=== PATIENT | male | born 1955 | race Caucasian/White ===

== ENCOUNTER 2016-12-09 22:30 | Emergency (ER) | payer OTHER ==
[~2016-12-09 22:30] MED LIST: ALBUTEROL SULF8.5 GM IH; AMOXICILLIN500 MG PO; ATARAX,VISTARIL25 MG PO; ATARAX10 MG PO; AUGMENTIN500 MG PO; B COMPLEX #11 EACH PO; BACTROBAN OINTM22 GM TP; BESIVANCE5 ML LEFT EYE; CLEOCIN300 MG PO; CLINDAMYCIN HC300 MG PO; CLONIDINE HCL0.1 MG PO; COMBIGAN O20 DROP/5 BOTH EYES; COMBIVENT RESPIM4 GM IH; COMBIVENT200 INHALA IH; COUMADIN PO; COUMADIN,JANTOVE5 MG PO; COUMADIN5 MG PO; Colace PO; Coumadin dosing per PO; Coumadin,Jantoven PO; DILAUDID2 MG PO; DUREZOL 0.100 DROP/5 LEFT EYE; ENOXAPARIN SC; GABAPENTIN300 MG PO; HYDROCHLOROTH12.5 M3 PO; ILEVRO1.7 ML LEFT EYE; K-DUR20 MEQ PO; KADIAN30 MG PO; KEFLEX500 MG PO; KENALOG,ARISTOC15 G2 TP; KENALOG,ARISTOC80 G1 TP; KLONOPIN0.5 M1 PO; LAMISIL250 MG PO; LASIX20 MG PO; LASIX40 MG PO; LATANOPROST2.5 ML BOTH EYES; LIBRIUM25 MG PO; LIDOCAINE700 MG TD; LISINOPRIL10 MG PO; Lasix PO; MELOXICAM15 MG PO; MICROZIDE12.5 M1 PO; MORPHINE CON20 MG/M1 PO; MORPHINE PO; MORPHINE SULFAT15 M1 PO; NAPROSYN500 MG PO; NEURONTIN300 MG PO; NICOTINE PATCH1 EAC2 TD; NOHOMEMEDS; Neurontin PO; Normodyne,Trandate PO; PERCOCET 10/1 TABLET PO; PERCOCET 5/31 TABLET; PERCOCET 5/31 TABLET PO; PREDNISONE10 MG PO; PREDNISONE20 MG PO; PREDNISONE50 MG PO; PRILOSEC40 MG PO; PROMETHAZINE HC25 M1 PO; PROTONIX PO; PROZAC10 MG PO; Percocet 5/325,Endoc PO; Protonix PO; RANITIDINE HCL150 M1 PO; SENOKOT,SENN1 TABLE1 PO; SYMBICORT60 INHALAT IH; THERAGRAN1 TABLET PO; THIAMINE,VITAM100 MG PO; TRAZODONE HCL50 MG PO; Tylenol Regular Stre PO; ULTRACET1 TABLET PO; ULTRAVATE 0.05%15 GM TP; VENTOLIN HFA18 GM IH; VOLTAREN75 MG PO; WARFARIN SODIUM5 MG PO; XARELTO15 MG PO; XARELTO20 MG PO; ZANTAC150 MG PO; ZITHROMAX Z-PA250 MG PO; ZOFRAN ODT8 MG PO; [UNRECOGNIZED DRUG - REMARK]
== END 2016-12-09 22:48 | disposition left against medical advice (07) ==
LOC: EME 22:30
DX: R07.81 Pleurodynia (principal); M54.9 Dorsalgia, unspecified; Z53.21 Procedure and treatment not carried out due to patient leaving prior to being seen by health care provider

== ENCOUNTER 2016-12-14 12:05 | Emergency (ER) | payer OTHER ==
[~2016-12-14] VITALS: Ht 172.7 cm; Wt 75.0 kg
[2016-12-14] MEDS ORDERED: OMEPRAZOLE20 M2 PO (14:08)
[2016-12-14] MEDS ORDERED: ZESTRIL10 MG PO (14:10)
[2016-12-14 15:20] LABS: HEMATOCRIT 27.8 % (38.0-50.0); MCH 19.9 PG (29.0-34.0); MCHC 31.3 G/DL (30.0-36.0); MCV 63.5 FL (86-99); PLATELET COUNT 449 K/uL (156-360); RBC DIS.WIDTH-CV 19.7 % (11.8-14.6); RED BLOOD COUNT 4.38 M/uL (4.00-5.50); WHITE BLOOD COUNT 5.8 K/uL (4.1-10.2)
[2016-12-14 15:38] LABS: CHLORIDE 106 mEq/L (99-109); POTASSIUM 4.4 mEq/L (3.7-5.4); SODIUM 138 mEq/L (136-147)
[2016-12-14 15:40] LABS: GLUCOSE 99 mg/dL (70-99)
[2016-12-14 15:41] LABS: ANION GAP 10 MEQ/L (2-14)
[2016-12-14 15:44] LABS: GFR ESTIMATE (CALCULATED) > 59 mL/min/
[2016-12-14 15:45] LABS: UREA NITROGEN (BUN) 7 mg/dL (9-23)
[2016-12-14 16:41] LABS: ADD MIUA? NO; BILIRUBIN NEGATIVE; BLOOD NEGATIVE; COLOR YELLOW ((YELLOW)); GLUCOSE (STRIP) NEGATIVE; KETONES NEGATIVE; LEUKOCYTES NEGATIVE; NITRITE NEGATIVE; PROTEIN (STRIP) NEGATIVE; SPECIFIC GRAVITY 1.022 (1.000-1.030); UCUL ADDED? NO; UROBILINOGEN 0.2 MG/DL (0.2-1.0)
[2016-12-14] MEDS ORDERED: KEFLEX500 MG PO (16:54)
[2016-12-14] MEDS ORDERED: ULTRAM50 MG PO (17:33)
[2016-12-14 18:02] VITALS: BP 132/88
== END 2016-12-14 18:03 | disposition home or self-care (01) ==
LOC: EME 12:05
PROVIDERS: Physician Assistant
DX: S20.211A Contusion of right front wall of thorax, initial encounter (principal); L03.115 Cellulitis of right lower limb; D64.9 Anemia, unspecified; Y04.0XXA Assault by unarmed brawl or fight, initial encounter; Y92.89 Other specified places as the place of occurrence of the external cause; I10 Essential (primary) hypertension; K21.9 Gastro-esophageal reflux disease without esophagitis; Z86.711 Personal history of pulmonary embolism; Z86.718 Personal history of other venous thrombosis and embolism; F17.200 Nicotine dependence, unspecified, uncomplicated; Z89.511 Acquired absence of right leg below knee
CPT/HCPCS: 71020; 80048; 81003; 85027; 99281; 99284

== ENCOUNTER 2017-02-13 14:03 | Emergency (ER) | payer OTHER ==
[~2017-02-13] VITALS: Ht 172.7 cm; Wt 85.4 kg
[~2017-02-13 14:03] MED LIST changes: +OMEPRAZOLE20 M2 PO; +ULTRAM50 MG PO; +ZESTRIL10 MG PO
[2017-02-13] MEDS ORDERED: LIDODERM 5% P1 PATCH TD (17:39)
[2017-02-13 18:51] VITALS: BP 127/74
== END 2017-02-13 18:53 | disposition home or self-care (01) ==
LOC: EME 14:03
DX: M77.32 Calcaneal spur, left foot (principal); S80.811A Abrasion, right lower leg, initial encounter; Z89.511 Acquired absence of right leg below knee; X58.XXXA Exposure to other specified factors, initial encounter; I10 Essential (primary) hypertension; K21.9 Gastro-esophageal reflux disease without esophagitis; Z86.711 Personal history of pulmonary embolism; Z86.718 Personal history of other venous thrombosis and embolism; F17.200 Nicotine dependence, unspecified, uncomplicated
CPT/HCPCS: 73630; 99281; 99284

== ENCOUNTER 2017-02-27 16:21 | Inpatient (IN) | payer OTHER ==
[~2017-02-27] VITALS: Ht 162.6 cm; Wt 80.9 kg
[~2017-02-27 16:21] MED LIST changes: +LIDODERM 5% P1 PATCH TD
[2017-02-27 17:34] LABS: CHLORIDE 104 mEq/L (99-109); POTASSIUM 3.8 mEq/L (3.7-5.4); SODIUM 137 mEq/L (136-147)
[2017-02-27 17:35] LABS: GLUCOSE 86 mg/dL (70-99)
[2017-02-27 17:36] LABS: HEMATOCRIT 23.8 % (38.0-50.0); MCHC 30.3 G/DL (30.0-36.0); MCV 62.8 FL (86-99); MEAN PLAT.VOLUME 8.1 uM^3 (9.0-12.4); PLATELET COUNT 651 K/uL (156-360); RBC DIS.WIDTH-CV 19.9 % (11.8-14.6); RBC DIS.WIDTH-SD 43.3 % (39-53); RED BLOOD COUNT 3.79 M/uL (4.00-5.50); WHITE BLOOD COUNT 9.2 K/uL (4.1-10.2)
[2017-02-27 17:37] LABS: ANION GAP 11 MEQ/L (2-14)
[2017-02-27 17:39] LABS: GFR ESTIMATE (CALCULATED) > 59 mL/min/
[2017-02-27 17:40] LABS: UREA NITROGEN (BUN) 7 mg/dL (9-23)
[2017-02-27] MEDS ORDERED: XARELTO20 MG PO (21:06)
[2017-02-27] MEDS ORDERED: LATANOPROST2.5 ML BOTH EYES (21:07)
[2017-02-27] MEDS ORDERED: TIZANIDINE HCL4 MG PO (21:08)
[2017-02-27] MEDS ORDERED: GABAPENTIN300 MG PO (21:09)
[2017-02-27] MEDS ORDERED: MEDROL DOSEPAK4 MG PO (21:11)
[2017-02-27] MEDS ORDERED: TRAZODONE HCL50 MG PO (21:11)
[2017-02-27] MEDS ORDERED: CLONAZEPAM0.5 MG PO (21:12)
[2017-02-27] MEDS ORDERED: FLUOXETINE HCL40 MG PO (21:12)
[2017-02-27 21:54] VITALS: BP 129/64
[2017-02-27 22:10] VITALS: BP 131/66
[2017-02-27 22:55] VITALS: BP 139/68
[2017-02-27 23:55] VITALS: BP 141/73
[2017-02-28] VITALS (11 sets, daily range): BP systolic 125–171; BP diastolic 70–84
[2017-02-28 02:37] LABS: IRON 18 MCG/DL (35-150)
[2017-02-28 07:42] LABS: HEMATOCRIT 30.2 % (38.0-50.0); MCH 20.5 PG (29.0-34.0); MCHC 30.1 G/DL (30.0-36.0); MEAN PLAT.VOLUME 8.4 uM^3 (9.0-12.4); PLATELET COUNT 624 K/uL (156-360); RBC DIS.WIDTH-CV 24.2 % (11.8-14.6); RBC DIS.WIDTH-SD 56.6 % (39-53); RED BLOOD COUNT 4.44 M/uL (4.00-5.50); WHITE BLOOD COUNT 8.2 K/uL (4.1-10.2)
[2017-02-28 07:43] LABS: ANION GAP 7 MEQ/L (2-14); CHLORIDE 106 MEQ/L (99-109); GFR ESTIMATE (CALCULATED) > 59 mL/min/; GLUCOSE 83 mg/dL (70-99); POTASSIUM 4.3 MEQ/L (3.7-5.4); SAMPLE HEMOLYSIS CHECK 0; SAMPLE ICTERIC CHECK 0; SAMPLE LIPEMIA CHECK 0; SODIUM 139 MEQ/L (136-147); UREA NITROGEN (BUN) 9 mg/dL (9-23)
[2017-02-28 07:56] LABS: FERRITIN 7 NG/ML (22-322)
[2017-02-28 16:18] LABS: INTERNAL CONTROL VALID? YES
[2017-03-01 00:09] VITALS: BP 147/77
[2017-03-01 03:22] VITALS: BP 150/85
[2017-03-01 06:52] LABS: HEMATOCRIT 29.1 % (38.0-50.0); MCH 20.9 PG (29.0-34.0); MCHC 30.6 G/DL (30.0-36.0); MCV 68.3 FL (86-99); MEAN PLAT.VOLUME 8.5 uM^3 (9.0-12.4); PLATELET COUNT 555 K/uL (156-360); RBC DIS.WIDTH-CV 24.3 % (11.8-14.6); RBC DIS.WIDTH-SD 56.9 % (39-53); RED BLOOD COUNT 4.26 M/uL (4.00-5.50); WHITE BLOOD COUNT 6.9 K/uL (4.1-10.2)
[2017-03-01 07:04] LABS: ANION GAP 6 MEQ/L (2-14); CHLORIDE 103 MEQ/L (99-109); GFR ESTIMATE (CALCULATED) > 59 mL/min/; GLUCOSE 82 mg/dL (70-99); POTASSIUM 4.2 MEQ/L (3.7-5.4); SAMPLE HEMOLYSIS CHECK 0; SAMPLE ICTERIC CHECK 0; SAMPLE LIPEMIA CHECK 0; SODIUM 137 MEQ/L (136-147); UREA NITROGEN (BUN) 12 mg/dL (9-23)
[2017-03-01 08:19] VITALS: BP 129/71
[2017-03-01 11:04] VITALS: BP 131/66
[2017-03-01 16:01] VITALS: BP 134/77
[2017-03-01 20:23] VITALS: BP 122/70
[2017-03-02 00:03] VITALS: BP 114/69
[2017-03-02 04:00] VITALS: BP 127/70
[2017-03-02 07:38] VITALS: BP 116/62
[2017-03-02 11:09] VITALS: BP 104/54
[2017-03-02] MEDS ORDERED: ENDOCET 5-3251 EACH PO (13:30)
[2017-03-02] MEDS ORDERED: ZESTRIL10 MG PO (13:30)
== END 2017-03-02 15:20 | disposition home or self-care (01) | DRG 812 ==
LOC: EME 16:21 → 5SOUTH 23:24 → EDOF 23:24 → 5SOUTH 02-28 02:04
PROVIDERS: Family Medicine
PROC: 30233N1 Transfusion of Nonautologous Red Blood Cells into Peripheral Vein, Percutaneous Approach (ICD-10-PCS; principal; 2017-02-27)
DX: D50.9 Iron deficiency anemia, unspecified (principal); T87.89 Other complications of amputation stump; Y83.5 Amputation of limb(s) as the cause of abnormal reaction of the patient, or of later complication, without mention of misadventure at the time of the procedure; I73.9 Peripheral vascular disease, unspecified; I10 Essential (primary) hypertension; J44.9 Chronic obstructive pulmonary disease, unspecified; K21.9 Gastro-esophageal reflux disease without esophagitis; F41.9 Anxiety disorder, unspecified; I87.2 Venous insufficiency (chronic) (peripheral); I89.0 Lymphedema, not elsewhere classified; F10.20 Alcohol dependence, uncomplicated; G89.29 Other chronic pain; F17.210 Nicotine dependence, cigarettes, uncomplicated; Z86.711 Personal history of pulmonary embolism; Z88.1 Allergy status to other antibiotic agents; Z88.5 Allergy status to narcotic agent; Z86.718 Personal history of other venous thrombosis and embolism; Z89.511 Acquired absence of right leg below knee; Z79.01 Long term (current) use of anticoagulants; Z79.82 Long term (current) use of aspirin
CPT/HCPCS: 71020; 80048; 82272; 82728; 83540; 84466; 85027; 86850; 86900; 86901; 86920; 93926; 93971; 94640; 99281; 99285; J1756; J2405; J7050; J7509; P9016

== ENCOUNTER 2017-06-11 15:29 | Inpatient (IN) | payer OTHER ==
[~2017-06-11 15:29] MED LIST changes: +CLONAZEPAM0.5 MG PO; +ENDOCET 5-3251 EACH PO; +FLUOXETINE HCL40 MG PO; +MEDROL DOSEPAK4 MG PO; +TIZANIDINE HCL4 MG PO
[2017-06-11 16:02] LABS: BASE EXCESS -1.6 mEq/L (-3 to +3); CARBOXY HGB 3.2 % (0-5)
[2017-06-11 16:06] LABS: BICARBONATE 21.7 mEq/L (22-26); COMMENTS - BLOOD GASES A+C+; PCO2 32 mm Hg (35-45); PO2 63 mm Hg (80-100); SITE LR; pH 7.44 (7.35-7.45)
[2017-06-11 16:07] LABS: FI02 0.21 %
[2017-06-11 16:24] LABS: BASOPHIL COUNT 0.1 K/uL (0-0.1); EOSINOPHIL (%) 1.4 % (0-5); HEMATOCRIT 43.5 % (38.0-50.0); IMMATURE GRANULOCYTE (%) 0.7 % (0.0-0.7); INSTRUMENT ABS NEUTROPHIL CT 0.9 K/uL; LYMPHOCYTE COUNT 1.4 K/uL (1.0-2.8); MCH 27.9 PG (29.0-34.0); MCHC 34.3 G/DL (30.0-36.0); MCV 81.5 FL (86-99); MEAN PLAT.VOLUME 9.1 uM^3 (9.0-12.4); MONOCYTE COUNT 0.4 K/uL (0-0.8); NEUTROPHIL (%) 32.5 % (45-76); NEUTROPHIL COUNT 0.9 K/uL (1.8-6.4); PLATELET COUNT 171 K/uL (156-360); RBC DIS.WIDTH-SD 42.5 % (39-53); RED BLOOD COUNT 5.34 M/uL (4.00-5.50); WHITE BLOOD COUNT 2.9 K/uL (4.1-10.2)
[2017-06-11 16:35] LABS: CHLORIDE 96 mEq/L (99-109); POTASSIUM 4.2 mEq/L (3.7-5.4); SODIUM 135 mEq/L (136-147)
[2017-06-11 16:37] LABS: GLUCOSE 69 mg/dL (70-99)
[2017-06-11 16:38] LABS: ANION GAP 19 MEQ/L (2-14)
[2017-06-11 16:40] LABS: SERUM ETHYL ALCOHOL 254 mg/dL
[2017-06-11 16:41] LABS: GFR ESTIMATE (CALCULATED) > 59 mL/min/
[2017-06-11 16:42] LABS: UREA NITROGEN (BUN) 3 mg/dL (9-23)
[2017-06-11 16:44] LABS: TROP-I INTERPRETATION NEGATIVE; TROPONIN-I < 0.01 ng/mL (0.0-0.30)
[2017-06-11 17:01] LABS: TOTAL BILIRUBIN 0.6 mg/dL (0.0-1.0)
[2017-06-11 17:02] LABS: ALKALINE PHOSPHATASE 95 IU/L (3-129)
[2017-06-11 17:05] LABS: DIRECT BILIRUBIN 0.3 mg/dL (0.0-0.3)
[2017-06-11 17:06] LABS: LIPASE 27 U/L (1.0-51.0)
[2017-06-11 18:46] LABS: TROP-I INTERPRETATION NEGATIVE; TROPONIN-I < 0.01 ng/mL (0.0-0.30)
[2017-06-11 19:35] LABS: POINT-OF-CARE METER ID UU13113702
[2017-06-11 20:24] LABS: ADD MIUA? NO; BILIRUBIN NEGATIVE; BLOOD NEGATIVE; COLOR STRAW ((YELLOW)); GLUCOSE (STRIP) NEGATIVE; KETONES 5; LEUKOCYTES NEGATIVE; NITRITE NEGATIVE; PROTEIN (STRIP) NEGATIVE; SPECIFIC GRAVITY 1.003 (1.000-1.030); UCUL ADDED? NO; UROBILINOGEN 0.2 MG/DL (0.2-1.0)
[2017-06-11 23:34] LABS: D-DIMER ELISA 1.49 mg/L FEU (< 0.57)
[2017-06-11 23:40] LABS: MAGNESIUM 1.8 mg/dL (1.3-2.7)
[2017-06-12] VITALS (7 sets, daily range): BP systolic 131–185; BP diastolic 80–106
[2017-06-12 01:17] LABS: TROP-I INTERPRETATION NEGATIVE; TROPONIN-I < 0.01 ng/mL (0.0-0.30)
[2017-06-12 02:34] LABS: INTER. NORMALIZED RATIO 1.2; PROTHROMBIN TIME 12.5 (9.2-11.2); PTT 30.6 (25-32)
[2017-06-12 03:07] LABS: AMPHETAMINES QUANT VALUE 0 NG/ML; BARBITUATES QUANT VALUE 0 NG/ML; BENZODIAZEPINES QUANT VALUE 0 NG/ML; BENZODIAZEPINES, URINE SCREEN Negative (200 ng/mL); MARIJUANA QUANT VALUE 0 NG/ML; OPIATES QUANTITATIVE VALUE 0 NG/ML; PHENCYCLIDINE QUANT VALUE 0 NG/ML
[2017-06-12 05:41] LABS: MCH 28.2 PG (29.0-34.0); MCHC 34.2 G/DL (30.0-36.0); MCV 82.4 FL (86-99); MEAN PLAT.VOLUME 9.4 uM^3 (9.0-12.4); PLATELET COUNT 173 K/uL (156-360); RBC DIS.WIDTH-CV 14.9 % (11.8-14.6); RED BLOOD COUNT 4.61 M/uL (4.00-5.50); WHITE BLOOD COUNT 2.5 K/uL (4.1-10.2)
[2017-06-12 06:11] LABS: ANION GAP 13 MEQ/L (2-14); CHLORIDE 94 MEQ/L (99-109); GFR ESTIMATE (CALCULATED) > 59 mL/min/; GLUCOSE 200 mg/dL (70-99); POTASSIUM 3.8 MEQ/L (3.7-5.4); SAMPLE HEMOLYSIS CHECK 0; SAMPLE ICTERIC CHECK 0; SAMPLE LIPEMIA CHECK 0; SODIUM 133 MEQ/L (136-147); UREA NITROGEN (BUN) 5 mg/dL (9-23)
[2017-06-12 06:17] LABS: TROP-I INTERPRETATION NEGATIVE; TROPONIN-I < 0.01 ng/mL (0.0-0.30)
[2017-06-12 15:32] LABS: INTER. NORMALIZED RATIO 1.4; PROTHROMBIN TIME 14.7 (9.2-11.2); PTT 54.4 (25-32)
[2017-06-12 17:16] LABS: POINT-OF-CARE METER ID UU13113698
[2017-06-13 04:19] VITALS: BP 161/93
[2017-06-13 05:41] LABS: EOSINOPHIL (%) 0.7 % (0-5); IMMATURE GRANULOCYTE (%) 0.5 % (0.0-0.7); INSTRUMENT ABS NEUTROPHIL CT 3.6 K/uL; LYMPHOCYTE COUNT 1.7 K/uL (1.0-2.8); MCH 27.7 PG (29.0-34.0); MEAN PLAT.VOLUME 9.8 uM^3 (9.0-12.4); MONOCYTE COUNT 0.5 K/uL (0-0.8); NEUTROPHIL (%) 60.3 % (45-76); NEUTROPHIL COUNT 3.6 K/uL (1.8-6.4); PLATELET COUNT 165 K/uL (156-360); RBC DIS.WIDTH-CV 15.1 % (11.8-14.6); RBC DIS.WIDTH-SD 44.3 % (39-53); RED BLOOD COUNT 4.76 M/uL (4.00-5.50); WHITE BLOOD COUNT 5.9 K/uL (4.1-10.2)
[2017-06-13 06:02] LABS: INTER. NORMALIZED RATIO 1.4; PROTHROMBIN TIME 14.8 (9.2-11.2); PTT 65.9 (25-32)
[2017-06-13 06:49] VITALS: BP 157/87
[2017-06-13 06:57] LABS: ALKALINE PHOSPHATASE 77 IU/L (3-129); ANION GAP 11 MEQ/L (2-14); CHLORIDE 103 MEQ/L (99-109); GFR ESTIMATE (CALCULATED) > 59 mL/min/; POTASSIUM 3.4 MEQ/L (3.7-5.4); SAMPLE HEMOLYSIS CHECK 0; SAMPLE ICTERIC CHECK 0; SAMPLE LIPEMIA CHECK 0; SODIUM 139 MEQ/L (136-147); TOTAL BILIRUBIN 0.9 MG/DL (0.0-1.0); UREA NITROGEN (BUN) 4 mg/dL (9-23)
[2017-06-13 07:08] LABS: GLUCOSE 86 mg/dL (70-99)
[2017-06-13 08:41] LABS: POINT-OF-CARE METER ID UU13113698; POINT-OF-CARE USER ID NUTSLF44
[2017-06-13 10:47] VITALS: BP 118/77
[2017-06-13 11:36] LABS: POINT-OF-CARE METER ID UU13113698; POINT-OF-CARE USER ID NUTSLF44
[2017-06-13 16:16] VITALS: BP 139/92
[2017-06-13 17:17] LABS: POINT-OF-CARE METER ID UU13113698; POINT-OF-CARE USER ID NUTSLF44
[2017-06-13 19:01] LABS: INTER. NORMALIZED RATIO 1.3; PROTHROMBIN TIME 14.8 SEC (10.2-12.9)
[2017-06-13 19:03] VITALS: BP 128/86
[2017-06-13 19:13] LABS: PTT 77.8 SEC (25-37)
[2017-06-13 21:23] LABS: POINT-OF-CARE METER ID UU13113781
[2017-06-13 23:38] VITALS: BP 143/90
[2017-06-14 05:21] VITALS: BP 163/96
[2017-06-14 05:26] LABS: BASOPHIL COUNT 0.1 K/uL (0-0.1); EOSINOPHIL COUNT 0.1 K/uL (0-0.3); IMMATURE GRANULOCYTE (%) 0.5 % (0.0-0.7); IMMATURE GRANULOCYTE COUNT 0.1 K/uL; INSTRUMENT ABS NEUTROPHIL CT 7.5 K/uL; LYMPHOCYTE COUNT 2.4 K/uL (1.0-2.8); MCH 29.2 PG (29.0-34.0); MEAN PLAT.VOLUME 10.3 uM^3 (9.0-12.4); MONOCYTE (%) 7.7 % (3-12); MONOCYTE COUNT 0.8 K/uL (0-0.8); NEUTROPHIL (%) 68.6 % (45-76); NEUTROPHIL COUNT 7.5 K/uL (1.8-6.4); PLATELET COUNT 157 K/uL (156-360); RBC DIS.WIDTH-CV 15.4 % (11.8-14.6); RBC DIS.WIDTH-SD 46.8 % (39-53); RED BLOOD COUNT 4.65 M/uL (4.00-5.50)
[2017-06-14 05:58] LABS: ANION GAP 11 MEQ/L (2-14); CHLORIDE 103 MEQ/L (99-109); GFR ESTIMATE (CALCULATED) > 59 mL/min/; GLUCOSE 82 mg/dL (70-99); POTASSIUM 3.9 MEQ/L (3.7-5.4); SAMPLE HEMOLYSIS CHECK 0; SAMPLE ICTERIC CHECK 0; SAMPLE LIPEMIA CHECK 0; SODIUM 136 MEQ/L (136-147); UREA NITROGEN (BUN) 5 mg/dL (9-23)
[2017-06-14 07:59] VITALS: BP 143/99
[2017-06-14 11:59] VITALS: BP 105/68
[2017-06-14] MEDS ORDERED: PERCOCET 5/31 TABLET PO (12:54)
[2017-06-14] MEDS ORDERED: LYRICA150 MG PO (12:55)
[2017-06-14] MEDS ORDERED: TRAZODONE HCL50 MG PO (12:56)
[2017-06-14] MEDS ORDERED: KLONOPIN0.5 M1 PO ×2 (12:57→12:58)
[2017-06-14] MEDS ORDERED: ACAMPROSATE CA333 MG PO (12:58)
[2017-06-14] MEDS ORDERED: XARELTO20 MG PO (12:58)
[2017-06-14] MEDS ORDERED: PROZAC40 MG PO (12:58)
[2017-06-14] MEDS ORDERED: HYDROCHLOROTH12.5 M3 PO (12:59)
[2017-06-14] MEDS ORDERED: OMEPRAZOLE20 MG PO (12:59)
[2017-06-14] MEDS ORDERED: SYMBICORT60 INHALAT IH (12:59)
[2017-06-14] MEDS ORDERED: VENTOLIN HFA18 GM IH (13:02)
[2017-06-14] MEDS ORDERED: ALBUTEROL2.5 MG/3 M IH (13:03)
[2017-06-14] MEDS ORDERED: COMBIVENT RESPIM4 GM IH (13:04)
[2017-06-14 17:08] VITALS: BP 128/80
[2017-06-14 19:10] VITALS: BP 125/80
[2017-06-15 00:01] VITALS: BP 182/108
[2017-06-15 04:30] VITALS: BP 136/85
[2017-06-15 06:03] LABS: BASOPHIL COUNT 0.1 K/uL (0-0.1); EOSINOPHIL (%) 2.3 % (0-5); EOSINOPHIL COUNT 0.1 K/uL (0-0.3); HEMATOCRIT 40.2 % (38.0-50.0); IMMATURE GRANULOCYTE COUNT 0.1 K/uL; INSTRUMENT ABS NEUTROPHIL CT 3.6 K/uL; LYMPHOCYTE COUNT 1.6 K/uL (1.0-2.8); MCH 27.7 PG (29.0-34.0); MCHC 32.6 G/DL (30.0-36.0); MONOCYTE (%) 10.6 % (3-12); MONOCYTE COUNT 0.7 K/uL (0-0.8); NEUTROPHIL COUNT 3.6 K/uL (1.8-6.4); PLATELET COUNT 176 K/uL (156-360); RBC DIS.WIDTH-SD 45.8 % (39-53); RED BLOOD COUNT 4.73 M/uL (4.00-5.50); WHITE BLOOD COUNT 6.2 K/uL (4.1-10.2)
[2017-06-15 06:32] LABS: ANION GAP 13 MEQ/L (2-14); CHLORIDE 105 MEQ/L (99-109); GFR ESTIMATE (CALCULATED) > 59 mL/min/; GLUCOSE 93 mg/dL (70-99); POTASSIUM 3.4 MEQ/L (3.7-5.4); SAMPLE HEMOLYSIS CHECK 0; SAMPLE ICTERIC CHECK 0; SAMPLE LIPEMIA CHECK 0; SODIUM 139 MEQ/L (136-147); UREA NITROGEN (BUN) 7 mg/dL (9-23)
[2017-06-15 07:34] VITALS: BP 145/87
[2017-06-15 07:57] LABS: POINT-OF-CARE METER ID UU13113698; POINT-OF-CARE USER ID ENVKC36
[2017-06-15 11:49] LABS: POINT-OF-CARE USER ID ENVKC36
[2017-06-15 12:27] VITALS: BP 104/67
[2017-06-15 16:52] LABS: POINT-OF-CARE USER ID ENVKC36
[2017-06-15 17:11] VITALS: BP 131/87
[2017-06-15 19:31] VITALS: BP 110/66
[2017-06-16] VITALS (7 sets, daily range): BP systolic 114–167; BP diastolic 65–91
[2017-06-16 07:38] LABS: POINT-OF-CARE METER ID UU13113781
[2017-06-16 08:57] LABS: BASOPHIL COUNT 0.1 K/uL (0-0.1); EOSINOPHIL (%) 2.4 % (0-5); EOSINOPHIL COUNT 0.2 K/uL (0-0.3); HEMATOCRIT 39.9 % (38.0-50.0); IMMATURE GRANULOCYTE (%) 1.6 % (0.0-0.7); IMMATURE GRANULOCYTE COUNT 0.1 K/uL; INSTRUMENT ABS NEUTROPHIL CT 3.4 K/uL; LYMPHOCYTE COUNT 1.7 K/uL (1.0-2.8); MCH 27.8 PG (29.0-34.0); MCHC 32.1 G/DL (30.0-36.0); MCV 86.6 FL (86-99); MEAN PLAT.VOLUME 9.6 uM^3 (9.0-12.4); MONOCYTE (%) 14.7 % (3-12); MONOCYTE COUNT 0.9 K/uL (0-0.8); NEUTROPHIL (%) 53.4 % (45-76); NEUTROPHIL COUNT 3.4 K/uL (1.8-6.4); PLATELET COUNT 210 K/uL (156-360); RBC DIS.WIDTH-CV 15.1 % (11.8-14.6); RBC DIS.WIDTH-SD 46.5 % (39-53); RED BLOOD COUNT 4.61 M/uL (4.00-5.50); WHITE BLOOD COUNT 6.3 K/uL (4.1-10.2)
[2017-06-16 09:24] LABS: ALKALINE PHOSPHATASE 69 IU/L (3-129); ANION GAP 10 MEQ/L (2-14); CHLORIDE 100 MEQ/L (99-109); GFR ESTIMATE (CALCULATED) > 59 mL/min/; GLUCOSE 79 mg/dL (70-99); POTASSIUM 3.8 MEQ/L (3.7-5.4); SAMPLE HEMOLYSIS CHECK 0; SAMPLE ICTERIC CHECK 0; SAMPLE LIPEMIA CHECK 0; SODIUM 136 MEQ/L (136-147); TOTAL BILIRUBIN 0.7 MG/DL (0.0-1.0); UREA NITROGEN (BUN) 8 mg/dL (9-23)
[2017-06-16 11:31] LABS: POINT-OF-CARE METER ID UU13113781
[2017-06-16 16:32] LABS: POINT-OF-CARE METER ID UU13113781
[2017-06-17 03:57] VITALS: BP 138/73
[2017-06-17 06:05] LABS: BASOPHIL COUNT 0.1 K/uL (0-0.1); EOSINOPHIL (%) 2.5 % (0-5); EOSINOPHIL COUNT 0.2 K/uL (0-0.3); IMMATURE GRANULOCYTE (%) 1.2 % (0.0-0.7); IMMATURE GRANULOCYTE COUNT 0.1 K/uL; INSTRUMENT ABS NEUTROPHIL CT 3.7 K/uL; MCH 29.2 PG (29.0-34.0); MCHC 34.4 G/DL (30.0-36.0); MEAN PLAT.VOLUME 9.7 uM^3 (9.0-12.4); MONOCYTE (%) 19.6 % (3-12); MONOCYTE COUNT 1.5 K/uL (0-0.8); NEUTROPHIL (%) 48.7 % (45-76); NEUTROPHIL COUNT 3.7 K/uL (1.8-6.4); PLATELET COUNT 261 K/uL (156-360); RBC DIS.WIDTH-SD 44.9 % (39-53); RED BLOOD COUNT 4.59 M/uL (4.00-5.50); WHITE BLOOD COUNT 7.5 K/uL (4.1-10.2)
[2017-06-17 06:27] LABS: ALKALINE PHOSPHATASE 73 IU/L (3-129); ANION GAP 10 MEQ/L (2-14); CHLORIDE 100 MEQ/L (99-109); GFR ESTIMATE (CALCULATED) > 59 mL/min/; GLUCOSE 84 mg/dL (70-99); POTASSIUM 3.7 MEQ/L (3.7-5.4); SAMPLE HEMOLYSIS CHECK 0; SAMPLE ICTERIC CHECK 0; SAMPLE LIPEMIA CHECK 0; SODIUM 135 MEQ/L (136-147); TOTAL BILIRUBIN 0.8 MG/DL (0.0-1.0); UREA NITROGEN (BUN) 10 mg/dL (9-23)
[2017-06-17 08:11] VITALS: BP 142/77
[2017-06-17 11:23] VITALS: BP 111/68
[2017-06-17 11:27] LABS: POINT-OF-CARE USER ID NUTSLF44
[2017-06-17 16:09] VITALS: BP 109/70
[2017-06-17 17:26] LABS: POINT-OF-CARE METER ID UU13113698; POINT-OF-CARE USER ID NUTSLF44
[2017-06-17 21:42] VITALS: BP 112/67
[2017-06-18 05:56] VITALS: BP 166/81
[2017-06-18 06:37] LABS: BASOPHIL COUNT 0.1 K/uL (0-0.1); EOSINOPHIL (%) 3.4 % (0-5); EOSINOPHIL COUNT 0.2 K/uL (0-0.3); IMMATURE GRANULOCYTE (%) 1.8 % (0.0-0.7); IMMATURE GRANULOCYTE COUNT 0.1 K/uL; INSTRUMENT ABS NEUTROPHIL CT 1.7 K/uL; LYMPHOCYTE COUNT 2.1 K/uL (1.0-2.8); MCHC 32.4 G/DL (30.0-36.0); MCV 86.6 FL (86-99); MEAN PLAT.VOLUME 9.3 uM^3 (9.0-12.4); MONOCYTE (%) 24.6 % (3-12); MONOCYTE COUNT 1.4 K/uL (0-0.8); NEUTROPHIL (%) 30.7 % (45-76); NEUTROPHIL COUNT 1.7 K/uL (1.8-6.4); PLATELET COUNT 277 K/uL (156-360); RBC DIS.WIDTH-CV 14.9 % (11.8-14.6); RBC DIS.WIDTH-SD 46.5 % (39-53); RED BLOOD COUNT 4.39 M/uL (4.00-5.50); WHITE BLOOD COUNT 5.5 K/uL (4.1-10.2)
[2017-06-18 07:12] LABS: ANION GAP 12 MEQ/L (2-14); CHLORIDE 101 MEQ/L (99-109); GFR ESTIMATE (CALCULATED) > 59 mL/min/; GLUCOSE 84 mg/dL (70-99); POTASSIUM 4.2 MEQ/L (3.7-5.4); SAMPLE HEMOLYSIS CHECK 0; SAMPLE ICTERIC CHECK 0; SAMPLE LIPEMIA CHECK 0; SODIUM 138 MEQ/L (136-147); UREA NITROGEN (BUN) 9 mg/dL (9-23)
[2017-06-18 07:55] VITALS: BP 149/80
[2017-06-18 11:31] LABS: POINT-OF-CARE METER ID UU13113725
[2017-06-18 13:05] LABS: MAGNESIUM 1.8 mg/dl (1.3-2.7)
[2017-06-18 16:03] VITALS: BP 154/80
[2017-06-18 21:25] VITALS: BP 118/71
[2017-06-18 22:58] VITALS: BP 136/80
[2017-06-19 03:22] VITALS: BP 162/86
[2017-06-19 07:05] VITALS: BP 143/85
[2017-06-19 15:31] VITALS: BP 153/86
[2017-06-19 23:03] VITALS: BP 129/77
[2017-06-20 05:47] LABS: POINT-OF-CARE METER ID UU13113725
[2017-06-20 06:07] LABS: HEMATOCRIT 37.1 % (38.0-50.0); MCH 29.2 PG (29.0-34.0); MCHC 33.7 G/DL (30.0-36.0); MCV 86.7 FL (86-99); MEAN PLAT.VOLUME 9.1 uM^3 (9.0-12.4); PLATELET COUNT 327 K/uL (156-360); RBC DIS.WIDTH-CV 14.6 % (11.8-14.6); RBC DIS.WIDTH-SD 46.4 % (39-53); RED BLOOD COUNT 4.28 M/uL (4.00-5.50); WHITE BLOOD COUNT 4.8 K/uL (4.1-10.2)
[2017-06-20 07:50] VITALS: BP 90/58
[2017-06-20 14:55] VITALS: BP 111/70
[2017-06-20 20:59] VITALS: BP 130/70
[2017-06-21 00:56] VITALS: BP 99/56
[2017-06-21 07:31] VITALS: BP 138/76
[2017-06-21 11:50] VITALS: BP 106/67
[2017-06-21 15:46] VITALS: BP 119/70
[2017-06-21 21:14] VITALS: BP 122/77
[2017-06-22 05:58] LABS: HEMATOCRIT 35.5 % (38.0-50.0); MCH 29.1 PG (29.0-34.0); MCHC 32.7 G/DL (30.0-36.0); MCV 89.2 FL (86-99); MEAN PLAT.VOLUME 9.2 uM^3 (9.0-12.4); PLATELET COUNT 376 K/uL (156-360); RBC DIS.WIDTH-CV 14.6 % (11.8-14.6); RBC DIS.WIDTH-SD 46.7 % (39-53); RED BLOOD COUNT 3.98 M/uL (4.00-5.50); WHITE BLOOD COUNT 7.1 K/uL (4.1-10.2)
[2017-06-22 07:15] VITALS: BP 155/82
[2017-06-22 15:00] VITALS: BP 123/72
[2017-06-22] MEDS ORDERED: LOPRESSOR25 MG PO (15:46)
[2017-06-22] MEDS ORDERED: CLONIDINE HCL0.1 MG PO (15:46)
[2017-06-22] MEDS ORDERED: AMLODIPINE BESYL5 MG PO (15:46)
[2017-06-22] MEDS ORDERED: PANTOPRAZOLE SO40 MG PO (15:47)
[2017-06-22] MEDS ORDERED: ENDOCET 5-3251 EACH PO (15:47)
[2017-06-22] MEDS ORDERED: THERAGRAN1 TABLET PO (15:47)
[2017-06-22] MEDS ORDERED: QUETIAPINE FUMA50 MG PO (15:47)
[2017-06-22] MEDS ORDERED: XARELTO20 MG PO (15:47)
[2017-06-22] MEDS ORDERED: FOLIC ACID1 MG PO (15:47)
== END 2017-06-22 17:22 | DRG 641 ==
LOC: EME → EDBD 15:29 → 4EAST 22:22 → EDOF 22:22 → 4EAST 06-12 00:45 → 5EAST 06-17 18:15
PROVIDERS: Emergency Medicine; Hospitalist; Internal Medicine
DX: E51.2 Wernicke's encephalopathy (principal); F10.221 Alcohol dependence with intoxication delirium; F10.231 Alcohol dependence with withdrawal delirium; F19.231 Other psychoactive substance dependence with withdrawal delirium; E87.2 Acidosis; F11.20 Opioid dependence, uncomplicated; F33.9 Major depressive disorder, recurrent, unspecified; T87.89 Other complications of amputation stump; Y90.8 Blood alcohol level of 240 mg/100 ml or more; K29.20 Alcoholic gastritis without bleeding; E87.6 Hypokalemia; F17.210 Nicotine dependence, cigarettes, uncomplicated; F41.8 Other specified anxiety disorders; L89.899 Pressure ulcer of other site, unspecified stage; E16.2 Hypoglycemia, unspecified; E86.0 Dehydration; G89.29 Other chronic pain; I10 Essential (primary) hypertension; J44.9 Chronic obstructive pulmonary disease, unspecified; K21.9 Gastro-esophageal reflux disease without esophagitis; K31.84 Gastroparesis; K76.0 Fatty (change of) liver, not elsewhere classified; R09.02 Hypoxemia; R13.10 Dysphagia, unspecified; T40.601A Poisoning by unspecified narcotics, accidental (unintentional), initial encounter; Z91.14 Patient's other noncompliance with medication regimen; Z59.0 Homelessness; Z79.01 Long term (current) use of anticoagulants; Z86.711 Personal history of pulmonary embolism; Z89.511 Acquired absence of right leg below knee; Z82.49 Family history of ischemic heart disease and other diseases of the circulatory system
CPT/HCPCS: 36600; 70450; 71010; 74177; 78582; 80048; 80053; 80076; 80306 90; 81003; 82140; 82803; 82948; 83605; 83690; 83735; 84484; 85025; 85027; 85379; 85610; 85730; 87040; 92526 GN; 92610 GN; 93005; 93970; 94640; 94640 76; 94644; 94760; 99202; 99281; 99285; A9540; A9567; C9113; G0480; J1630; J1650; J1815; J2060; J2270; J2310; J2405; J2543; J2765; J2930; J3010; J3370; J3411; J3475; J7030; J7042; J7050

== ENCOUNTER 2017-07-03 16:47 | Emergency (ER) | payer OTHER ==
[~2017-07-03] VITALS: Ht 172.7 cm; Wt 80.7 kg
[~2017-07-03 16:47] MED LIST changes: +ACAMPROSATE CA333 MG PO; +ALBUTEROL2.5 MG/3 M IH; +AMLODIPINE BESYL5 MG PO; +FOLIC ACID1 MG PO; +LOPRESSOR25 MG PO; +LYRICA150 MG PO; +OMEPRAZOLE20 MG PO; +PANTOPRAZOLE SO40 MG PO; +PROZAC40 MG PO; +QUETIAPINE FUMA50 MG PO
[2017-07-03 18:16] LABS: POINT-OF-CARE METER ID UU13113702
[2017-07-03 21:08] VITALS: BP 106/62
== END 2017-07-03 21:11 | disposition home or self-care (01) ==
LOC: EME 16:47
DX: F10.10 Alcohol abuse, uncomplicated (principal); J44.9 Chronic obstructive pulmonary disease, unspecified; K21.9 Gastro-esophageal reflux disease without esophagitis; I10 Essential (primary) hypertension; Z86.718 Personal history of other venous thrombosis and embolism; Z89.511 Acquired absence of right leg below knee; F17.200 Nicotine dependence, unspecified, uncomplicated
CPT/HCPCS: 82948; 99281; 99284

== ENCOUNTER 2017-07-06 17:12 | Emergency (ER) | payer OTHER ==
[~2017-07-06] VITALS: Ht 175.3 cm; Wt 75.2 kg
[2017-07-06 19:57] LABS: CHLORIDE 98 mEq/L (99-109); POTASSIUM 3.6 mEq/L (3.7-5.4); SODIUM 134 mEq/L (136-147)
[2017-07-06 19:59] LABS: GLUCOSE 108 mg/dL (70-99)
[2017-07-06 20:00] LABS: ANION GAP 14 MEQ/L (2-14)
[2017-07-06 20:02] LABS: GFR ESTIMATE (CALCULATED) > 59 mL/min/; SERUM ETHYL ALCOHOL 238 mg/dL
[2017-07-06 20:03] LABS: UREA NITROGEN (BUN) 4 mg/dL (9-23)
[2017-07-06 21:11] LABS: HEMATOCRIT 35.4 % (38.0-50.0); MCH 28.8 PG (29.0-34.0); MCHC 33.9 G/DL (30.0-36.0); MCV 84.9 FL (86-99); PLATELET COUNT 344 K/uL (156-360); RBC DIS.WIDTH-CV 14.4 % (11.8-14.6); RBC DIS.WIDTH-SD 44.5 % (39-53); RED BLOOD COUNT 4.17 M/uL (4.00-5.50); WHITE BLOOD COUNT 8.7 K/uL (4.1-10.2)
[2017-07-07 03:09] VITALS: BP 127/63
== END 2017-07-07 03:12 | disposition home or self-care (01) ==
LOC: EME 17:12
PROVIDERS: Emergency Medicine
DX: F10.129 Alcohol abuse with intoxication, unspecified (principal); F32.9 Major depressive disorder, single episode, unspecified; F41.9 Anxiety disorder, unspecified; F60.9 Personality disorder, unspecified; Y90.7 Blood alcohol level of 200-239 mg/100 ml; Z04.6 Encounter for general psychiatric examination, requested by authority; Z89.511 Acquired absence of right leg below knee; I10 Essential (primary) hypertension; J44.9 Chronic obstructive pulmonary disease, unspecified; K21.9 Gastro-esophageal reflux disease without esophagitis; Z86.718 Personal history of other venous thrombosis and embolism; Z88.2 Allergy status to sulfonamides; F17.200 Nicotine dependence, unspecified, uncomplicated
CPT/HCPCS: 80048; 85027; 90837; 99281; 99285; G0480

== ENCOUNTER 2017-07-10 11:50 | Emergency (ER) | payer OTHER ==
[~2017-07-10] VITALS: Ht 172.7 cm; Wt 76.3 kg
[2017-07-10 12:40] LABS: BASOPHIL COUNT 0.1 K/uL (0-0.1); EOSINOPHIL (%) 0.7 % (0-5); EOSINOPHIL COUNT 0.1 K/uL (0-0.3); HEMATOCRIT 36.8 % (38.0-50.0); IMMATURE GRANULOCYTE (%) 1.3 % (0.0-0.7); IMMATURE GRANULOCYTE COUNT 0.1 K/uL; LYMPHOCYTE COUNT 1.5 K/uL (1.0-2.8); MCH 28.7 PG (29.0-34.0); MCHC 34.2 G/DL (30.0-36.0); MCV 83.8 FL (86-99); MEAN PLAT.VOLUME 8.9 uM^3 (9.0-12.4); MONOCYTE (%) 16.9 % (3-12); MONOCYTE COUNT 1.1 K/uL (0-0.8); NEUTROPHIL (%) 58.5 % (45-76); PLATELET COUNT 376 K/uL (156-360); RBC DIS.WIDTH-CV 14.6 % (11.8-14.6); RED BLOOD COUNT 4.39 M/uL (4.00-5.50); WHITE BLOOD COUNT 6.8 K/uL (4.1-10.2)
[2017-07-10 12:53] LABS: CHLORIDE 102 mEq/L (99-109); POTASSIUM 4.1 mEq/L (3.7-5.4); SODIUM 139 mEq/L (136-147)
[2017-07-10 12:56] LABS: GLUCOSE 93 mg/dL (70-99)
[2017-07-10 12:57] LABS: ANION GAP 16 MEQ/L (2-14)
[2017-07-10 12:58] LABS: TOTAL BILIRUBIN 0.4 mg/dL (0.0-1.0)
[2017-07-10 12:59] LABS: ALKALINE PHOSPHATASE 71 IU/L (3-129); GFR ESTIMATE (CALCULATED) > 59 mL/min/; SERUM ETHYL ALCOHOL < 10 mg/dL
[2017-07-10 13:00] LABS: UREA NITROGEN (BUN) 7 mg/dL (9-23)
[2017-07-10] MEDS ORDERED: LIBRIUM25 MG PO (13:55)
[2017-07-10 14:22] VITALS: BP 148/90
== END 2017-07-10 14:52 | disposition home or self-care (01) ==
LOC: EME 11:50
PROVIDERS: Emergency Medicine
DX: F10.239 Alcohol dependence with withdrawal, unspecified (principal); I10 Essential (primary) hypertension; J44.9 Chronic obstructive pulmonary disease, unspecified; Z59.0 Homelessness; Z89.511 Acquired absence of right leg below knee; F32.9 Major depressive disorder, single episode, unspecified; F17.200 Nicotine dependence, unspecified, uncomplicated
CPT/HCPCS: 73590; 80053; 85025; 99281; 99285; G0480

== ENCOUNTER 2017-07-17 12:11 | Emergency (ER) | payer OTHER ==
[~2017-07-17] VITALS: Ht 172.7 cm; Wt 74.0 kg
[2017-07-17 13:39] LABS: BASOPHIL COUNT 0.1 K/uL (0-0.1); EOSINOPHIL (%) 2.1 % (0-5); EOSINOPHIL COUNT 0.2 K/uL (0-0.3); HEMATOCRIT 36.4 % (38.0-50.0); IMMATURE GRANULOCYTE (%) 0.4 % (0.0-0.7); INSTRUMENT ABS NEUTROPHIL CT 4.2 K/uL; LYMPHOCYTE COUNT 2.5 K/uL (1.0-2.8); MCH 28.9 PG (29.0-34.0); MCHC 33.5 G/DL (30.0-36.0); MCV 86.3 FL (86-99); MEAN PLAT.VOLUME 9.2 uM^3 (9.0-12.4); MONOCYTE (%) 15.5 % (3-12); MONOCYTE COUNT 1.3 K/uL (0-0.8); NEUTROPHIL (%) 50.6 % (45-76); NEUTROPHIL COUNT 4.2 K/uL (1.8-6.4); PLATELET COUNT 348 K/uL (156-360); RBC DIS.WIDTH-CV 14.3 % (11.8-14.6); RBC DIS.WIDTH-SD 44.8 % (39-53); RED BLOOD COUNT 4.22 M/uL (4.00-5.50); WHITE BLOOD COUNT 8.2 K/uL (4.1-10.2)
[2017-07-17 13:49] LABS: CHLORIDE 99 mEq/L (99-109); POTASSIUM 3.4 mEq/L (3.7-5.4); SODIUM 134 mEq/L (136-147)
[2017-07-17 13:50] LABS: GLUCOSE 95 mg/dL (70-99)
[2017-07-17 13:52] LABS: ANION GAP 14 MEQ/L (2-14)
[2017-07-17 13:54] LABS: GFR ESTIMATE (CALCULATED) > 59 mL/min/
[2017-07-17 13:55] LABS: UREA NITROGEN (BUN) 4 mg/dL (9-23)
[2017-07-17] MEDS ORDERED: KEFLEX500 MG PO (14:26)
== END 2017-07-17 15:14 | disposition home or self-care (01) ==
LOC: EME 12:11
PROVIDERS: Emergency Medicine
DX: T87.43 Infection of amputation stump, right lower extremity (principal); L03.115 Cellulitis of right lower limb; T87.89 Other complications of amputation stump; Z89.511 Acquired absence of right leg below knee; F17.200 Nicotine dependence, unspecified, uncomplicated
CPT/HCPCS: 80048; 85025; 99281; 99284

== ENCOUNTER 2017-08-03 11:30 | Emergency (ER) | payer OTHER ==
[~2017-08-03] VITALS: Ht 172.7 cm; Wt 72.7 kg
[2017-08-03 13:32] LABS: BASOPHIL COUNT 0.1 K/uL (0-0.1); EOSINOPHIL (%) 0.5 % (0-5); HEMATOCRIT 36.9 % (38.0-50.0); IMMATURE GRANULOCYTE (%) 0.2 % (0.0-0.7); INSTRUMENT ABS NEUTROPHIL CT 4.9 K/uL; LYMPHOCYTE COUNT 2.3 K/uL (1.0-2.8); MCH 28.5 PG (29.0-34.0); MCHC 33.9 G/DL (30.0-36.0); MCV 84.1 FL (86-99); MEAN PLAT.VOLUME 8.8 uM^3 (9.0-12.4); MONOCYTE (%) 13.2 % (3-12); MONOCYTE COUNT 1.1 K/uL (0-0.8); NEUTROPHIL COUNT 4.9 K/uL (1.8-6.4); PLATELET COUNT 365 K/uL (156-360); RBC DIS.WIDTH-CV 13.9 % (11.8-14.6); RBC DIS.WIDTH-SD 42.9 % (39-53); RED BLOOD COUNT 4.39 M/uL (4.00-5.50); WHITE BLOOD COUNT 8.5 K/uL (4.1-10.2)
[2017-08-03 13:40] LABS: CHLORIDE 101 mEq/L (99-109); POTASSIUM 4.1 mEq/L (3.7-5.4); SODIUM 136 mEq/L (136-147)
[2017-08-03 13:43] LABS: GLUCOSE 99 mg/dL (70-99)
[2017-08-03 13:44] LABS: ANION GAP 10 MEQ/L (2-14)
[2017-08-03 13:45] LABS: TOTAL BILIRUBIN 0.5 mg/dL (0.0-1.0)
[2017-08-03 13:46] LABS: ALKALINE PHOSPHATASE 74 IU/L (3-129); GFR ESTIMATE (CALCULATED) > 59 mL/min/
[2017-08-03 13:47] LABS: UREA NITROGEN (BUN) 4 mg/dL (9-23)
[2017-08-03] MEDS ORDERED: CLINDAMYCIN HC150 MG PO (15:20)
[2017-08-03 15:44] VITALS: BP 125/89
== END 2017-08-03 15:46 | disposition home or self-care (01) ==
LOC: EME 11:30
PROVIDERS: Physician Assistant
DX: T87.43 Infection of amputation stump, right lower extremity (principal); L03.115 Cellulitis of right lower limb; L03.116 Cellulitis of left lower limb; Z89.511 Acquired absence of right leg below knee; Z86.718 Personal history of other venous thrombosis and embolism; I10 Essential (primary) hypertension; J44.9 Chronic obstructive pulmonary disease, unspecified; K21.9 Gastro-esophageal reflux disease without esophagitis; F32.9 Major depressive disorder, single episode, unspecified; F17.200 Nicotine dependence, unspecified, uncomplicated
CPT/HCPCS: 73701; 80053; 85025; 87040; 99281; 99284; J1885; J7120